=== PATIENT | male | born 1995 | race Two or more races ===

== ENCOUNTER 2024-12-01 15:19 | Emergency (ER) | payer OTHER ==
[~2024-12-01] VITALS: Ht 170.2 cm; Wt 83.9 kg
[2024-12-01] MEDS ORDERED: CEFTRIAXONE SODIUM 1,000 MG VIAL ONE (17:12)
[2024-12-01] MEDS ORDERED: KETOROLAC TROMETHAMINE 30 MG VIAL ONE (17:12)
[2024-12-01] MEDS ORDERED: LIDOCAINE HCL 1% 10ML VIAL ONE (17:12)
[2024-12-01] MEDS ORDERED: CEFTRIAXONE SODIUM 1,000 MG VIAL IM ONE (17:15)
[2024-12-01] MEDS ORDERED: KETOROLAC TROMETHAMINE 30 MG VIAL IM ONE (17:15)
[2024-12-01] MEDS ORDERED: AMOX-CLAV 875-1 EAC1 PO (17:16)
== END 2024-12-01 19:53 | disposition home or self-care (01) ==
LOC: ER 15:19
DX: J03.80 Acute tonsillitis due to other specified organisms (principal); Z91.018 Allergy to other foods
CPT/HCPCS: 96372; 99282; J0696; J1885